=== PATIENT | male | born 1980 | race Two or more races ===

== ENCOUNTER 2023-09-23 04:17 | Emergency (ER) | payer MEDICAID ==
[~2023-09-23] VITALS: Ht 172.7 cm; Wt 80.0 kg
[2023-09-23 04:19] VITALS: BP 160/100; PULSE 83; RESP 19; TEMP 98.2; O2SAT 98
[2023-09-23] MEDS ORDERED: HYDROCODONE/ACETAMINOPHEN 5/325MG TABLET PO ONE (08:30)
[2023-09-23] MEDS ORDERED: IBUP-2029 MT (09:49)
== END 2023-09-23 10:08 | disposition home or self-care (01) ==
LOC: ER 04:17
DX: M54.9 Dorsalgia, unspecified (principal); M54.2 Cervicalgia; R07.81 Pleurodynia; E11.9 Type 2 diabetes mellitus without complications; I10 Essential (primary) hypertension; V49.9XXA Car occupant (driver) (passenger) injured in unspecified traffic accident, initial encounter; Y93.89 Activity, other specified; Y92.89 Other specified places as the place of occurrence of the external cause; Y99.8 Other external cause status
CPT/HCPCS: 71101; 72040; 72100; 99284